=== PATIENT | male | born 1935 | race Caucasian/White ===

== ENCOUNTER 2019-01-31 10:00 | Outpatient (RCR) | payer MEDICARE, BC, SELFPAY | END 2019-03-07 09:34 | disposition home or self-care (01) | LOC: PT.CARL 10:00 | PROVIDERS: Visit Provider Pediatrics | DX: M25.551 Pain in right hip (principal); M79.604 Pain in right leg | CPT/HCPCS: 97033; 97110; 97163 ==

== ENCOUNTER 2020-06-11 10:00 | Outpatient (RCR) | payer MEDICARE, BC, SELFPAY | END 2020-06-20 17:27 | disposition home or self-care (01) | LOC: PT.CARL 10:00 | PROVIDERS: PCP Pediatrics; Visit Provider Pediatrics | DX: M25.562 Pain in left knee (principal); M25.561 Pain in right knee | CPT/HCPCS: 97110; 97163 ==

== ENCOUNTER 2021-07-02 09:55 | Emergency (ER) | payer MEDICARE, BC, SELFPAY ==
[2021-07-02 11:32] VITALS: BP 140/76; PULSE 64; RESP 19; TEMP 37; O2SAT 98; BMI 26.2
--- NOTE | 2021-07-02 11:36 | XR_ITS ---
PROCEDURE: XR KNEE RT 3V CLINICAL INDICATION: fall yesterday Pain, injury COMPARISON: No exams were available for comparison FINDINGS: No fracture or dislocation. No lytic or blastic change. There is normal mineralization. Moderate osteoarthritic changes are present involving the medial compartment. 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 There is mild osteoarthritis of the lateral compartment and patellofemoral joint. There is diffuse vascular calcification. Other findings:None. IMPRESSION: Osteoarthritis, no acute fracture Dictated by: Baldo Lowe MD 07/02/2021 12:05 Baldo Lowe MD in [place] 07/02/2021 12:05
--- NOTE | 2021-07-02 11:38 | PC.NURSE ---
Pt to rad
--- NOTE | 2021-07-02 11:38 | HMH.EDUTC ---
[facility] [place] Disposition Clinical Impression: Knee sprain Qualifiers: Encounter type: initial encounter Involved ligament of knee: unspecified ligament Laterality: right Qualified Code(s): S83.91XA - Sprain of unspecified site of right knee, initial encounter Disposition: Home, Self-Care Condition on Discharge: Good Instructions: How To Perform RICE (Rest, Ice, Compress, Elevate) Additional Instructions: *weight bearing as tolerated *RICE, Rest the extremity, Ice 15-20 minutes 3-4 times daily, Compress- wear the ilya wrap as discussed as much as possible to help reduce swelling and pain, Elevate the extremity when at rest *Ilya wrap is for support and help control swelling, use it except in the shower. Be sure that is not to tight but not to loose either *Elevate when resting *Ibuprofen every 6-8 hours as needed for pain an inflammation. If need something more can take Tylenol in between doses of Ibuprofen to help Immediately follow up with your family doctor for new or worsening of symptoms, or no noticeable improvement over the next 3-5 days Referrals: Ariel Alvarez [Primary Care Provider] - As needed Chace العلي MD [Staff Physician] - (Call office for appointment) Time of Disposition: 12:08 Medical Decision Making - Dick Inquiry Pt receiving controlled substance: No Dick was queried for this patient: No Vital Signs: 07/02/21 11:32 Temperature 98.6 F Temperature Source Oral Pulse Rate [Right Radial] 64 Respiratory Rate 19 Blood Pressure [Right Arm] 140/76 Blood Pressure Mean [Right Arm] 97 Blood Pressure Source [Right Arm] Automatic Cuff Blood Pressure Position [Right Arm] Sitting 02 Sat by Pulse Oximetry 98 Oxygen Delivery Method Room Air Orders (Tests/Meds): ORDERS Category Date Time Status XR knee RT 3V Stat Exams 07/02/21 11:36 Taken - Radiology Data #1 Image(s): Knee Image Reviewed: Yes I have reviewed radiologist's interpretation Osteoarthritis, no acute fracture [facility] [place] HPI - General Stated complaint: AO [id number] right leg home injury Time Seen by Provider: 07/02/21 11:38 Mode of Arrival: Ambulatory Source of Information: Patient Limitations: No Limitations Description of Symptoms (Recalled from Triage Doc. by RN): C/O rt knee pain following a fall yesterday. Pt states that he tripped over his 's makeup bag HEENT Symptoms (Recalled from RN notes): No Resp Symptoms (Recalled from RN notes): No Skin Symptoms (Recalled from RN notes): No MS Symptoms (Recalled from RN notes): Yes (rt knee pain) Functional Status (Recalled from RN notes): n/a - History of Present Illness Provider Complaint: Patient states that he was walking through the house last night when he tripped over his wifes make up bag and fell between the fridge and the snack bar and twisted his right knee State that ever since he has been having pain and swelling in his right knee so he came in to get it checked out - Related Data Home Medications Medication Instructions Recorded Confirmed Aspirin 81 mg PO DAILY 05/16/19 05/16/19 Atorvastatin Calcium [Atorvastatin 80 mg PO HS 05/16/19 05/16/19 80mg Tab] Tamsulosin HCl [Flomax 0.4mg 0.4 mg PO HS 05/16/19 05/16/19 capsule] lisinopriL [Lisinopril 2.5mg Tab] 2.5 mg PO DAILY 05/16/19 05/16/19 Previous Rx's Medication Instructions Recorded Meloxicam [Mobic 15 mg tab] 15 mg PO DAILY 20 Days #20 tab 05/16/19 Allergies Allergy/AdvReac Type Severity Reaction Status Date / Time No Known Allergies Allergy Unverified 09/08/17 14:12 - Worker's Comp Is this a Worker's Comp case?: No H History - Hepatitis A Screen Drug use history?: No High risk sexual behaviors?: No History of sexually transmitted infection?: No Currently employed?: No Childcare worker?: No Do you have indoor plumbing?: Yes Do you have electricity?: Yes Attestation statement:: This patient has been screened for Hepatitis A risk factors. I have reviewed
[2021-07-02 12:30] VITALS: BP 140/76; PULSE 64; RESP 19; TEMP 37; O2SAT 98
== END 2021-07-02 12:30 | disposition home or self-care (01) ==
PROVIDERS: Emergency Provider Nurse Practitioner; PCP Pediatrics
DX: S83.91XA Sprain of unspecified site of right knee, initial encounter (principal); W01.0XXA Fall on same level from slipping, tripping and stumbling without subsequent striking against object, initial encounter; Y92.010 Kitchen of single-family (private) house as the place of occurrence of the external cause
CPT/HCPCS: G0463; 73562; 99202

== ENCOUNTER 2021-07-09 10:00 | Outpatient (RCR) | payer MEDICARE, BC, SELFPAY | END 2021-07-09 12:00 | disposition home or self-care (01) | LOC: PT.CARL 10:00 | PROVIDERS: PCP Pediatrics; Visit Provider Pediatrics | DX: M25.551 Pain in right hip (principal) | CPT/HCPCS: 97110; 97140; 97163 ==

== ENCOUNTER 2021-07-23 10:43 | Emergency (ER) | payer MEDICARE, BC, SELFPAY ==
[2021-07-23 10:44] VITALS: BP 192/75; PULSE 65; RESP 18; TEMP 36.5; O2SAT 98; BMI 26.2
--- NOTE | 2021-07-23 10:44 | XR_ITS ---
PROCEDURE: XR SHOULDER RT MIN 2V CLINICAL INDICATION: deformity FINDINGS: There is 17 mm superior dislocation of the head of the clavicle at the AC joint. The coracoclavicular space is widened. Osteoarthritic changes are present at the glenohumeral joint with irregularity of the greater tuberosity of the humeral head with a faint area of calcification at the greater tuberosity region which could be due to calcific tendinitis or a small bony fragment. Other findings:None. IMPRESSION: Grade 3 AC separation Degenerative changes at the humeral head with faint calcific density at the greater tuberosity which could be related to calcific tendinitis or small avulsed fragment Dictated by: Baldo Lowe MD 07/23/2021 12:53 Baldo Lowe MD in [place] 07/23/2021 12:53
--- NOTE | 2021-07-23 10:44 | HMH.EDGENADL ---
ED Disposition Clinical Impression: Dehydration Separation of AC joint, type 3 Qualifiers: Encounter type: initial encounter Laterality: right Qualified Code(s): S43.101A - Unspecified dislocation of right acromioclavicular joint, initial encounter Disposition: Home, Self-Care Condition on Discharge: Good Instructions: How to Prevent Falls Additional Instructions: Wear your arm sling. Motrin/Tylenol for aches and pains. Follow-up with orthopedics versus your PCP. Return the emergency department for fall or other injury. Referrals: Ariel Alvarez [Primary Care Provider] - Chace العلي MD [Staff Physician] - (Call for appointment) Time of Disposition: 14:37 - Critical Care Critical Care Time: No Attestation: On , the high probability of a clinically significant, sudden or life threatening deterioration of the following system(s) required my full and direct attention, intervention and personal management. The time I documented below is in addition to time spent performing reported procedures but includes the following listed in this critical care notation. Medical Decision Making - Medical Records Medical records reviewed: Yes: I reviewed the patient's medical records. - Dick Inquiry Pt receiving controlled substance: No Vital Signs: 07/23/21 10:44 07/23/21 11:30 07/23/21 12:30 Temperature 97.7 F Temperature Source Oral Pulse Rate 64 60 Pulse Rate [Radial] 65 Respiratory Rate 18 Blood Pressure 164/73 H 161/64 H Blood Pressure [Right Arm] 192/75 H Blood Pressure Mean 89 96 Blood Pressure Mean [Right Arm] 114 Blood Pressure Position [Right Arm] Sitting 02 Sat by Pulse Oximetry 98 97 98 Oxygen Delivery Method Room Air - Lab Data Lab results reviewed: Yes: I reviewed the patient's lab results. Lab Results 07/23/21 13:07: WBC 12.1 H, RBC 4.66, Hgb 15.0, Hct 45.1, MCV 96.7 H, MCH 32.2 H, MCHC 33.3, RDW 13.1, Plt Count 242, MPV 9.5, Neut % (Auto) 81.1 H, Lymph % (Auto) 13.0, [place] % (Auto) 4.5, Eos % (Auto) 1.0, Baso % (Auto) 0.4, Neut # (Auto) 9.8 H, Lymph # (Auto) 1.6, [place] # (Auto) 0.6, Eos # (Auto) 0.1, Baso # (Auto) 0.1 07/23/21 13:30: Urine Color Yellow, Urine Appearance Clear, Urine pH 6.0, Ur Specific [place] >= 1.030, Urine Protein 1+, Urine Glucose (UA) Negative, Urine Ketones Negative, Urine Blood Negative, Urine Nitrate Negative, Urine Bilirubin Negative, Urine Urobilinogen 0.2, Ur Leukocyte Esterase Negative, Urine RBC None, Urine WBC None, Ur Squamous Epith Cells None, Urine Bacteria None 07/23/21 13:55: Sodium 140, Potassium 4.2, Chloride 105, Carbon Dioxide 24, Anion Gap 15.2 H, BUN 20, Creatinine 1.00, Estimated Creat Clear 63, Estimated GFR 71, Est GFR ( Amer) 86, Glucose 136 H, Calcium 9.3, Total Bilirubin 0.7, AST 44, ALT 38, Alkaline Phosphatase 100, Total Protein 7.5, Albumin 4.1, Globulin 3.4 H, Albumin/Globulin Ratio 1.2 Result diagrams: 07/23/21 13:07 07/23/21 13:55 Orders (Tests/Meds): ED MEDICATIONS Generic Name Dose Route Start Last Admin Trade Name Freq PRN Reason Stop Dose Admin Sodium Chloride 500 mls @ 999 mls/hr 07/23/21 14:30 07/23/21 14:27 Sod Chlor 0.9% 1000ml Bag IV 07/23/21 15:00 999 mls/hr .Q31M ASHLEE Administration Discontinued Medications Generic Name Dose Route Start Last Admin Trade Name Freq PRN Reason Stop Dose Admin Sodium Chloride 1,000 mls @ 500 mls/hr 07/23/21 14:15 07/23/21 14:29 Sod Chlor 0.9% 1000ml Bag IV 08/22/21 14:14 Not Given .Q2H ASHLEE Tetanus/Reduced Diphtheria/Acell Pertussis 0.5 ml 07/23/21 11:08 07/23/21 11:38 Tet/Diphth/Pert-Adult 0.5ml Syringe IM 07/23/21 11:09 0.5 ml .ONCE ONE Administration - Radiology Data #1 Image(s): Shoulder Image Reviewed: Yes I reviewed the patient's radiology results Preliminary Findings: Abnormal Right AC joint separation - ECG Data Tracing #1 I reviewed this ECG and interpreted as documented below: Sinus rhythm with fi
[2021-07-23 10:45] VITALS: BMI 26.2
--- NOTE | 2021-07-23 10:49 | ECG_ITS ---
APPROVED REPORT Exam: Resting ECG HR:62 bpm ECG Measurements Heart Rate 62 AXES NV 242 P 85 QRSd 88 QRS 51 QT 396 T 33 QTc 401 Conclusion Sinus rhythm with 1st degree AV block Otherwise normal ECG Electronically signed by : Juanito Allen MD 07/23/2021 20:15:18
--- NOTE | 2021-07-23 10:58 | PC.NURSE ---
PT GOING TO RADIOLOGY
--- NOTE | 2021-07-23 11:10 | CT_ITS ---
PROCEDURE: CT HEAD/BRAIN WO CON CLINICAL INDICATION: fall COMPARISON: CT CT HEAD/BRAIN WO CON from 05/16/2019 TECHNIQUE: Axial images obtained. All CT scans at the facility use one or more dose reduction, viz: automated exposure control, ma/kV adjustment per patient size (including targeted exams where dose is matched to indication, i.e. head), or iterative reconstruction technique. FINDINGS: No midline shift, mass effect, intracranial hemorrhage, hydrocephalus, or extra-axial fluid collection is evident. There is generalized atrophy with hypoattenuation of the periventricular white matter consistent with microangiopathic changes. The calvarium has an unremarkable appearance. No mastoid effusion. No sinus air-fluid level. IMPRESSION: No acute intracranial finding Dictated by: Baldo Lowe MD 07/23/2021 12:31 Baldo Lowe MD in [place] 07/23/2021 12:31
--- NOTE | 2021-07-23 11:10 | CT_ITS ---
PROCEDURE: CT CERVICAL SPINE WO CON CLINICAL INDICATION: fall COMPARISON: No exams were available for comparison TECHNIQUE: Axial images obtained with sagittal and coronal reformats. All CT scans at the facility use one or more dose reduction, viz: automated exposure control, ma/kV adjustment per patient size (including targeted exams where dose is matched to indication, i.e. head), or iterative reconstruction technique. Axial spiral CT scanning performed of the cervical spine beginning at the base of the skull and continuing to the upper T-spine. 3-D multiplanar reconstruction with 3-D manipulation of volumetric data set in image rendering was completed by the radiologist and/or technologist with the supervision of the radiologist on independent workstation. FINDINGS: No fracture or dislocation. Multilevel cervical spondylosis is present. There is 3 mm anterolisthesis of C4 on C5. 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 Generalized facet hypertrophic changes are present. IMPRESSION: Cervical spondylosis, no acute fracture Dictated by: Baldo Lowe MD 07/23/2021 12:45 Baldo Lowe MD in [place] 07/23/2021 12:45
[2021-07-23 11:30] VITALS: BP 164/73; PULSE 64; O2SAT 97
--- NOTE | 2021-07-23 11:39 | PC.NURSE ---
SKIN TEAR TO L FA , WOUND CLEANED AND DRESSING APPLIED
--- NOTE | 2021-07-23 11:44 | PC.NURSE ---
PT GOING TO CT
[2021-07-23 12:30] VITALS: BP 161/64; PULSE 60; O2SAT 98
[2021-07-23 13:21] LABS: Basophils # 0.1 K/mm3 (0-0.2); Basophils % 0.4 % (0.1-2.0); Eosinophils # 0.1 K/mm3 (0.0-0.4); Hematocrit 45.1 % (42.0-52.0); Lymphocytes # 1.6 K/mm3 (0.7-4.5); Mean Corpuscular HGB Conc 33.3 g/dL (31.8-35.4); Mean Corpuscular Hemoglobin 32.2 pg (27.0-31.2); Mean Corpuscular Volume 96.7 fl (80-94); Mean Platelet Volume 9.5 fl (7.4-10.4); Monocytes # 0.6 K/mm3 (0.1-1.0); Monocytes % 4.5 % (1.7-9.3); Neutrophils # 9.8 K/mm3 (1.8-7.8); Neutrophils % 81.1 % (37.0-80.0); Platelet Count 242 K/mm3 (142-424); Red Blood Count 4.66 M/mm3 (4.60-6.20); Red Cell Distribution Width 13.1 % (11.5-17.5); White Blood Count 12.1 K/mm3 (4.8-10.8)
[2021-07-23 13:39] LABS: Microscopic, Urine URINE MICROSCOPIC (MICROSCOPIC)
[2021-07-23 13:55] LABS: Appearance,Urine CLEAR (Clear); Bilirubin,Urine Negative (Negative); Blood, Urine Negative (Negative); Color,Urine YELLOW (Yellow); Glucose,Urine (UA) Negative (Negative); Ketones,Urine Negative (Negative); Leukocyte Esterase,Urine Negative (Negative); Nitrate,Urine Negative (Negative); Protein,Urine 1+ (Negative); Specific Gravity, Urine >= 1.030 (1.005-1.030); Urobilinogen,Urine 0.2 EU/dl (0.2)
[2021-07-23 14:16] LABS: Alanine Aminotransferase 38 U/L (12-78); Albumin Level 4.1 g/dl (3.5-5.0); Albumin/Globulin Ratio 1.2 (1.1-1.8); Alkaline Phosphatase 100 U/L (38-126); Anion Gap 15.2 mEq/L (5-15); Aspartate Amino Transferase 44 U/L (17-59); Bilirubin,Total 0.7 mg/dl (0.2-1.3); Blood Urea Nitrogen 20 mg/dl (9-20); Calcium 9.3 mg/dl (8.4-10.2); Carbon Dioxide 24 mmol/L (22.0-30.0); Chloride 105 mmol/L (98-107); Creatinine Clearance Estimated 63 mL/min (50-200); Estimated Glomerular Filt Rate 71 ml/min (>60); GFR (African American) 86 ML/MIN (>60); Globulin 3.4 g/dL (1.3-3.2); Glucose 136 mg/dl (74-100); Potassium 4.2 mmoL/L (3.5-5.1); Sodium 140 mmol/L (136-145); Total Protein,Serum 7.5 g/dl (6.3-8.2)
[2021-07-23 15:15] VITALS: BP 144/64; PULSE 74; RESP 20; TEMP 36.6; O2SAT 99
== END 2021-07-23 14:55 | disposition home or self-care (01) ==
PROVIDERS: Emergency Provider Family Medicine; PCP Pediatrics
DX: S43.101A Unspecified dislocation of right acromioclavicular joint, initial encounter (principal); S50.812A Abrasion of left forearm, initial encounter; E86.0 Dehydration; I10 Essential (primary) hypertension; W10.9XXA Fall (on) (from) unspecified stairs and steps, initial encounter; Y92.015 Private garage of single-family (private) house as the place of occurrence of the external cause; Z23 Encounter for immunization
CPT/HCPCS: 36415; 70450; 72125; 73030; 80053; 81001; 85025; 90715; 93005; 96365; 96366; 96372; 99284

== ENCOUNTER 2021-09-04 11:00 | Outpatient (RCR) | payer MEDICARE, BC, SELFPAY | END 2021-09-10 14:12 | disposition home or self-care (01) | LOC: PT.CARL 11:00 | PROVIDERS: PCP Pediatrics; Visit Provider Pediatrics | DX: R53.1 Weakness (principal) | CPT/HCPCS: 97110; 97112; 97163 ==

== ENCOUNTER 2022-09-09 10:00 | Outpatient (RCR) | payer MEDICARE, BC, SELFPAY | END 2022-09-17 09:51 | disposition home or self-care (01) | LOC: PT.CARL 10:00 | PROVIDERS: PCP Pediatrics; Visit Provider Pediatrics | DX: M25.561 Pain in right knee (principal) | CPT/HCPCS: 97110; 97163; 97530 ==